=== PATIENT | male | born 1965 | race Caucasian/White ===

== ENCOUNTER 2022-08-04 13:17 | Outpatient (REF) | payer BC, SELFPAY ==
[2022-08-10 16:59] LABS: Stone Source KIDNEY STONE
== END 2022-08-04 13:18 | disposition home or self-care (01) ==
LOC: HO.LAB 13:17
PROVIDERS: PCP Internal Medicine; Visit Provider Urology
DX: N20.0 Calculus of kidney (principal)
CPT/HCPCS: 51798; 82365; 88300

== ENCOUNTER 2022-09-20 12:50 | Outpatient (REF) | payer BC, SELFPAY ==
--- NOTE | ~2022-09-20 | US_ITS ---
EXAMINATION: US RETROPERITONEAL LIMITED (RENAL ONLY) CLINICAL INFORMATION: Calculus of kidney. COMPARISON: None TECHNIQUE: Real-time imaging of the kidneys. FINDINGS: RIGHT KIDNEY: 11.3 x 5.2 x 5.3 cm (SAG x AP x TRV). The kidney is normal in size, contour, and echogenicity. Renal cortical thickness is normal. No focal parenchymal lesions or hydronephrosis. Nonobstructing lower pole 7 mm stone. LEFT KIDNEY: 11.9 x 5.3 x 6.1 cm (SAG x AP x TRV). The kidney is normal in size, contour, and echogenicity. Renal cortical thickness is normal. No calculi or focal parenchymal lesions. No hydronephrosis. US/US renal BI IMPRESSION: Nonobstructing right renal nephrolithiasis.
== END 2022-09-20 12:51 | disposition home or self-care (01) ==
LOC: HO.US 12:50
PROVIDERS: PCP Internal Medicine; Visit Provider Urology
DX: N20.0 Calculus of kidney (principal)
CPT/HCPCS: 76775

== ENCOUNTER → 2022-10-06 14:05 | Outpatient (BNVA) | payer BC, SELFPAY | PROVIDERS: PCP Internal Medicine; Visit Provider Urology | DX: Z13.89 Encounter for screening for other disorder (principal) ==

== ENCOUNTER 2023-04-04 11:18 | Outpatient (REF) | payer BC, SELFPAY ==
--- NOTE | ~2023-04-04 | US_ITS ---
EXAMINATION: US RETROPERITONEAL LIMITED (RENAL ONLY) CLINICAL INFORMATION: Calculus of kidney. COMPARISON: Ultrasound retroperitoneal limited (renal only) 09/20/2022. TECHNIQUE: Real-time imaging of the kidneys. FINDINGS: RIGHT KIDNEY: 10.1 x 6.3 x 5.1 cm (SAG x AP x TRV). The kidney is normal in size, contour, and echogenicity. Renal cortical thickness is normal. No renal calculi or hydronephrosis. Subcentimeter benign-appearing renal cyst, no follow-up imaging recommended. LEFT KIDNEY: 11.3 x 6.0 x 4.6 cm (SAG x AP x TRV). The kidney is normal in size, contour, and echogenicity. Renal cortical thickness is normal. No calculi or focal parenchymal lesions. No hydronephrosis. US/US renal BI IMPRESSION: No hydronephrosis or nephrolithiasis identified.
== END 2023-04-04 11:19 | disposition home or self-care (01) ==
LOC: HO.US 11:18
PROVIDERS: PCP Internal Medicine; Visit Provider Urology
DX: N20.0 Calculus of kidney (principal)
CPT/HCPCS: 76775

== ENCOUNTER 2023-04-12 15:23 | Outpatient (AMB) | payer BC, SELFPAY ==
--- NOTE | 2023-04-12 15:33 | A.OFFVIS_ITS ---
Intake Intake Visit Reasons: 6m/US/litholink(set) Intake Note: Patient is present for Follow Up Urology Med: None Antibiotic Allergy: None Blood Thinner: Aspirin [facility]acy: [facility] Allergies GRASS Allergy (Mild, Uncoded 10/06/22 14:05) Unknown HPI HPI Comments History of Present Illness Details Nitin is a very pleasant male. He is a patient of Dr. London. He is seen for the following urologic conditions - lower urinary tract symptoms - nephrolithiasis Imaging no evidence of stones Urination stabilized Six month follow-up for stone Nephrolithiasis Longstanding Has made stones since his early 30s Stone composition - calcium oxalate monohydrate 80% Imaging - 08/16 renal ultrasound 7 mm right lower pole - 04/16 renal ultrasounds no stones 24 hour urine - 08/16 borderline volume, low magnesium, normal citrate, normal calcium, normal oxalate, acidic urine Therapeutic plan - potassium citrate 20 mEq b.i.d. - magnesium citrate - interval imaging Lower urinary tract symptoms Was noticeable during hospital admission for cardiac related issues Has been started on a number of cardiac medications - metformin, carvedilol, spironolactone, Xarelto At this point will hold off on medications to cardiac medications stabilized [facility] Medical History GERD (gastroesophageal reflux disease) Heart attack History of kidney stones HTN (hypertension) Hyperlipidemia Surgical History H/O heart artery stent History of hernia repair History of lithotripsy Review of Systems Const Denies chills and Denies fever(s) Card Reports no additional complaints and Denies syncope Resp Denies cough GI Denies abdominal pain and Denies heartburn Reports as per HPI and Denies change in libido Neuro Denies syncope Psych Denies change in libido Endo Denies change in libido Physical Exam Const General: cooperative, healthy appearing, comfortable and no acute distress Orientation/consciousness: patient oriented x3 HEENT Face and sinus: Yes normal facial exam Mouth: moist mucous membranes Neck Neck: Yes normal visual inspection, Yes full ROM and Yes trachea midline Chest Chest palpation & inspection: normal inspection of the chest Resp Effort & Inspection: normal respiratory effort, able to speak in complete sentences and no respiratory distress GI Inspection: Yes normal to inspection Back/Spine/Pelvis Cervical Spine: normal cervical lordosis Thoracic/Lumbar Spine: thoracic and lumbar spine normal to inspection Skin General skin exam: no rashes or lesions noted Neuro General: patient oriented x3, gait normal, tone normal and moves all extremities Extrem General: Yes normal to inspection and Yes capillary refill normal Assessment & Plan Assessment & Plan (1) Nephrolithiasis: Code(s): N20.0 - Calculus of kidney (2) Lower urinary tract symptoms due to benign prostatic hyperplasia: Code(s): N40.1 - Benign prostatic hyperplasia with lower urinary tract symptoms Plan 6m follow-up renal ultrasound Orders: Orders US renal BI 6 Months N20.0 - Calculus of kidney Patient Instructions: Imaging studies, laboratory and physical exam results were discussed and revie wed in detail. No major barriers to patient understanding were identified. An opportunity to ask questions regarding the treatment plan was provided. All questions were answered. The patient expressed understanding and agreement with the above treatment plan. The patient is aware they should contact our office by phone for worsening of their current condition or the appearance of new urologic symptoms. Compliance is encouraged with any medications and followup testing that is ordered. It is a privilege to participate in the urologic care of your patient. If you have any questions or concerns regarding treatment for the above conditions, or other urologic issues, please do not hesitate to contact me. The office telephone contact is [phone]. This note is constructed using voice recognition software. While every effort has been made to ensure accuracy bail attacher errors may have been included. Yours sincerely, Dr Yeison Serra MD, [facility] - Urology Providers of Expert, Compassionate Care for the Genitourinary System Coding Level of Care Code Est Pt Level 3 (09022) Diagnoses Nephrolithiasis N20.0 Lower urinary tract symptoms due to benign prostatic hyperplasia N40.1
== END 2023-04-12 16:01 | disposition home or self-care (01) ==
PROVIDERS: PCP Internal Medicine; Visit Provider Urology
DX: N20.0 Calculus of kidney (principal); N40.1 Benign prostatic hyperplasia with lower urinary tract symptoms
CPT/HCPCS: 99213

== ENCOUNTER → 2023-04-12 15:23 | Outpatient (BNVA) | payer BC, SELFPAY | PROVIDERS: Visit Provider Urology ==

== ENCOUNTER 2023-09-28 13:13 | Outpatient (REF) | payer BC, SELFPAY ==
--- NOTE | ~2023-09-28 | US_ITS ---
EXAMINATION: US RETROPERITONEAL LIMITED (RENAL ONLY) CLINICAL INFORMATION: Calculus of kidney. COMPARISON: Renal ultrasound 04/04/2023 and 09/20/2022. TECHNIQUE: Real-time imaging of the kidneys. FINDINGS: RIGHT KIDNEY: 10.9 x 6.0 x 5.7 cm (SAG x AP x TRV). The kidney is normal in size and echogenicity. Renal cortical thickness is normal. There is an area of cortical bright punctate echogenicity consistent with calcification/stone. This was not noted on the most recent prior study. It should be noted that on the 09/20/2022 study, a 7 mm stone was noted in the lower pole of the right kidney which is not seen on the current exam. No renal calculi or hydronephrosis. A benign 0.8 cm mid renal lateral Bosniak class I renal cyst is noted which requires no additional imaging or follow up. No solid renal masses are seen. LEFT KIDNEY: 11.5 x 5.7 x 4.0 cm (SAG x AP x TRV). The kidney is normal in size and echogenicity. Renal cortical thickness is normal. Three echogenic foci seen at the lower pole of the left kidney, the largest measuring 3 mm consistent with nonobstructing calculi. These were not noted previously. No focal parenchymal lesions or hydronephrosis. ADDITIONAL FINDINGS: There is a 1.3 cm cyst in the spleen with a single thin septation. US/US renal BI IMPRESSION: 1. Bilateral nonobstructing renal calculi, not noted on the most recent prior study. 2. Incidental note made of a 1.3 cm splenic cyst with a single thin septation.
== END 2023-09-28 13:14 | disposition home or self-care (01) ==
LOC: HO.US 13:13
PROVIDERS: PCP Internal Medicine; Visit Provider Urology
DX: N20.0 Calculus of kidney (principal)
CPT/HCPCS: 76775

== ENCOUNTER 2023-10-19 14:52 | Outpatient (AMB) | payer BC, SELFPAY ==
--- NOTE | 2023-10-19 14:56 | A.OFFVIS_ITS ---
Intake Visit Reasons: 6M US(set) Intake Note: Patient presents today for a follow up on [facility] [place] Meds- None Allergies to Antibiotic- No Known Allergies Blood Thinner- Xarelto, Aspirin Post Void Residual: 46ml Patient Symptoms: None Digital Marketing Intern Required: No Accompanied by: Self / Same As Patient Allergies GRASS Allergy (Mild, Uncoded 10/19/23 15:00) Unknown Medication List - Last Reconciled 10/19/23 by Yeison Serra MD alcohol swabs (Alcohol Prep Pads) 0 pad topical BID aspirin 81 mg PO DAILY atorvastatin 80 mg PO DAILY blood sugar diagnostic (Accu-Chek Guide test strips) As directed carvedilol 25 mg PO BID empagliflozin (Jardiance) 10 mg PO DAILY eplerenone 25 mg PO DAILY fluoride (sodium) 1.1% PO BID lancets (Accu-Chek Softclix Lancets) As directed metformin 0 mg PO metformin ER 500 mg PO BID omeprazole 40 mg PO DAILY rivaroxaban (Xarelto) 20 mg PO DAILY sacubitril-valsartan 24-26 mg (Entresto) 1 tab PO BID HPI Comments Details: Nitin is a very pleasant male. He is a patient of Dr. London. He is seen for the following urologic conditions - lower urinary tract symptoms - nephrolithiasis in the setting of diabetes PVR 50 cc Small stones on imaging Recommend continuing with potassium citrate and magnesium citrate Repeat 24 hour urine in 6 months Nephrolithiasis Longstanding Has made stones since his early 30s Stone composition - calcium oxalate monohydrate 80% Imaging - 08/16 renal ultrasound 7 mm right lower pole - 04/16 renal ultrasounds no stones - 10/15 renal ultrasounds small right lower pole stone, small left stones 24 hour urine - 08/16 borderline volume, low magnesium, normal citrate, normal calcium, normal oxalate, acidic urine Therapeutic plan - potassium citrate 20 mEq b.i.d. - magnesium citrate - interval imaging Lower urinary tract symptoms Was noticeable during hospital admission for cardiac related issues Has been started on a number of cardiac medications - metformin, carvedilol, spironolactone, Xarelto At this point will hold off on medications to cardiac medications stabilized [facility] Medical History Heart attack GERD (gastroesophageal reflux disease) History of kidney stones HTN (hypertension) Hyperlipidemia Surgical History H/O heart artery stent History of lithotripsy History of hernia repair Review of Systems Const Denies chills and Denies fever(s) Card Reports no additional complaints and Denies syncope Resp Denies cough GI Denies abdominal pain and Denies heartburn Reports as per HPI and Denies change in libido Neuro Denies syncope Psych Denies change in libido Endo Denies change in libido Physical Exam Const General: cooperative, healthy appearing, comfortable and no acute distress Orientation/consciousness: patient oriented x3 HEENT Face and sinus: Yes normal facial exam Mouth: moist mucous membranes Neck Neck: Yes normal visual inspection, Yes full ROM and Yes trachea midline Chest Chest palpation & inspection: normal inspection of the chest Resp Effort & Inspection: normal respiratory effort, able to speak in complete sentences and no respiratory distress GI Inspection: Yes normal to inspection Back/Spine/Pelvis Cervical Spine: normal cervical lordosis Thoracic/Lumbar Spine: thoracic and lumbar spine normal to inspection Skin General skin exam: no rashes or lesions noted Neuro General: patient oriented x3, gait normal, tone normal and moves all extremities Extrem General: Yes normal to inspection and Yes capillary refill normal Office Procedures Post Void Residual Post Residual Void Post Void Residual (PVR): [id number] Void Residual by ultrasound Assessment & Plan Assessment & Plan (1) Nephrolithiasis: Code(s): N20.0 - Calculus of kidney Category: Medical (2) Lower urinary tract symptoms due to benign prostatic hyperplasia: Code(s): N40.1 - Benign prostatic hyperplasia with lower urinary tract symptoms Category: Medical Plan Six-month follow-up 24 hour urine Orders: Orders AMB Post Void Residual by ultrasound 10/19/23 R33.9 - Retention of urine, unspecified US renal BI 6 Months N20.0 - Calculus of kidney Patient Instructions: Imaging studies, laboratory and physical exam results were discussed and reviewed in detail. No major barriers to patient understanding were identified. An opportunity to ask questions regarding the treatment plan was provided. All questions were answered. The patient expressed understanding and agreement with the above treatment plan. The patient is aware they should contact our office by phone for worsening of their current condition or the appearance of new urologic symptoms. Compliance is encouraged with any medications and followup testing that is ordered. It is a privilege to participate in the urologic care of your patient. If you have any questions or concerns regarding treatment for the above conditions, or other urologic issues, please do not hesitate to contact me. The office telephone contact is [phone]. This note is constructed using voice recognition software. While every effort has been made to ensure accuracy blood bank business manager errors may have been included. Yours sincerely, Dr Yeison Serra MD, [facility] - Urology Providers of Expert, Compassionate Care for the Genitourinary System
== END 2023-10-19 15:36 | disposition home or self-care (01) ==
PROVIDERS: PCP Internal Medicine; Visit Provider Urology
DX: N20.0 Calculus of kidney (principal); N40.1 Benign prostatic hyperplasia with lower urinary tract symptoms
CPT/HCPCS: 99213

== ENCOUNTER → 2023-10-19 14:52 | Outpatient (BNVA) | payer BC, SELFPAY | PROVIDERS: PCP Internal Medicine; Visit Provider Urology | DX: N40.1 Benign prostatic hyperplasia with lower urinary tract symptoms (principal); R33.8 Other retention of urine; N20.0 Calculus of kidney | CPT/HCPCS: 51798 ==

== ENCOUNTER 2024-04-02 13:01 | Outpatient (REF) | payer BC, SELFPAY ==
--- NOTE | ~2024-04-02 | US_ITS ---
EXAMINATION: US RETROPERITONEAL LIMITED (RENAL ONLY) CLINICAL INFORMATION: Calculus of kidney. COMPARISON: Renal ultrasound 09/28/2023 and 04/04/2023. TECHNIQUE: Real-time imaging of the kidneys. FINDINGS: RIGHT KIDNEY: 10.9 x 6.1 x 5.2 cm (SAG x AP x TRV). The kidney is normal in size, contour, and echogenicity. Renal cortical thickness is normal. There is a cortical 3 mm echogenic focus seen in the mid kidney laterally consistent with calculus additional. No renal calculi or hydronephrosis. A benign [id number] renal 0.9 cm Bosniak class I renal cyst is noted which requires no additional imaging or follow up. No solid renal masses are seen. LEFT KIDNEY: 11.9 x 5.6 x 5.1 cm (SAG x AP x TRV). The kidney is normal in size, contour, and echogenicity. Renal cortical thickness is normal. Two echogenic foci noted in the kidney, one in the upper pole measuring 4 mm with the other in the lower pole measuring 3 mm consistent with nonobstructing calculi. No focal parenchymal lesions or hydronephrosis. ADDITIONAL FINDINGS: Splenic cysts are again noted with the largest measuring 1.5 cm along with a brightly echogenic 7 mm lesion, possibly a splenic hemangioma. US/US renal BI IMPRESSION: Bilateral nonobstructing renal calculi. Electronically signed by: Leoncio Briseno MD 04/11/2024 01:20 PM EDT
== END 2024-04-02 13:02 | disposition home or self-care (01) ==
LOC: HO.US 13:01
PROVIDERS: PCP Internal Medicine; Visit Provider Urology
DX: N20.0 Calculus of kidney (principal)
CPT/HCPCS: 76775

== ENCOUNTER 2024-04-18 14:45 | Outpatient (AMB) | payer BC, SELFPAY ==
--- NOTE | 2024-04-18 14:49 | MHC.OFFVIS ---
Intake Visit Reasons: 6/US(set) Intake Note: Patient is Present for Follow Up Ultrasound Urology Medication: None Antibiotic Allergies: None Blood Thinners: Aspirin, Xarelto Leather Novelty Parts Cutter Required: No Accompanied by: Self / Same As Patient Allergies GRASS Allergy (Mild, Uncoded 04/18/24 14:51) Unknown HPI Comments Details: Nitin is a very pleasant male. He is a patient of Dr. London. 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 He was unable to tell me why. Dr Machelle Dunne - attempted to contact Nephrolithiasis Longstanding Has made stones since his early 30s Stone composition - calcium oxalate monohydrate 80% Imaging - 08/16 renal ultrasound 7 mm right lower pole - 04/16 renal ultrasounds no stones - 10/15 renal ultrasounds small right lower pole stone, small left stones - 04/17 renal ultrasound small left nephrogenic focus 4 mm 24 hour urine - 08/16 borderline volume, low magnesium, normal citrate, normal calcium, normal oxalate, acidic urine Therapeutic plan - potassium citrate 20 mEq b.i.d. - magnesium citrate - interval imaging Lower urinary tract symptoms Was noticeable during hospital admission for cardiac related issues Has been started on a number of cardiac medications - metformin, carvedilol, spironolactone, Xarelto At this point will hold off on medications to cardiac medications stabilized [facility] Medical History Heart attack GERD (gastroesophageal reflux disease) History of kidney stones HTN (hypertension) Hyperlipidemia Surgical History H/O heart artery stent History of lithotripsy History of hernia repair Review of Systems Const Denies chills and Denies fever(s) Card Reports no additional complaints and Denies syncope Resp Denies cough GI Denies abdominal pain and Denies heartburn Reports as per HPI and Denies change in libido Neuro Denies syncope Psych Denies change in libido Endo Denies change in libido Physical Exam Const General: cooperative, healthy appearing, comfortable and no acute distress Orientation/consciousness: patient oriented x3 HEENT Face and sinus: Yes normal facial exam Mouth: moist mucous membranes Neck Neck: Yes normal visual inspection, Yes full ROM and Yes trachea midline Chest Chest palpation & inspection: normal inspection of the chest Resp Effort & Inspection: normal respiratory effort, able to speak in complete sentences and no respiratory distress GI Inspection: Yes normal to inspection Back/Spine/Pelvis Cervical Spine: normal cervical lordosis Thoracic/Lumbar Spine: thoracic and lumbar spine normal to inspection Skin General skin exam: no rashes or lesions noted Neuro General: patient oriented x3, gait normal, tone normal and moves all extremities Extrem General: Yes normal to inspection and Yes capillary refill normal Assessment & Plan Assessment & Plan (1) Nephrolithiasis: Code(s): N20.0 - Calculus of kidney Category: Medical (2) Lower urinary tract symptoms due to benign prostatic hyperplasia: Code(s): N40.1 - Benign prostatic hyperplasia with lower urinary tract symptoms Category: Medical Plan Interval surveillance Orders: Orders US renal BI 6 Months N20.0 - Calculus of kidney Patient Instructions: Imaging studies, laboratory and physical exam results were discussed and reviewed in detail. No major barriers to patient understanding were identified. An opportunity to ask questions regarding the treatment plan was provided. All questions were answered. The patient expressed understanding and agreement with the above treatment plan. The patient is aware they should contact our office by phone for worsening of their current condition or the appearance of new urologic symptoms. Compliance is encouraged with any medications and followup testing that is ordered. It is a privilege to participate in the urologic care of your patient. If you have any questions or concerns regarding treatment for the above conditions, or other urologic issues, please do not hesitate to contact me. The office telephone contact is [phone]. This note is constructed using voice recognition software. While every effort has been made to ensure accuracy radarman errors may have been included. Yours sincerely, Dr Yeison Serra MD, [facility] - Urology Providers of Expert, Compassionate Care for the Genitourinary System Coding Level of Care Code Est Pt Level 3 (31577) Diagnoses Nephrolithiasis N20.0 Lower urinary tract symptoms due to benign prostatic hyperplasia N40.1
== END 2024-04-18 15:28 | disposition home or self-care (01) ==
PROVIDERS: PCP Internal Medicine; Visit Provider Urology
DX: N20.0 Calculus of kidney (principal); N40.1 Benign prostatic hyperplasia with lower urinary tract symptoms
CPT/HCPCS: 99213

== ENCOUNTER → 2024-04-18 14:45 | Outpatient (BNVA) | payer BC, SELFPAY | PROVIDERS: PCP Internal Medicine; Visit Provider Urology ==

== ENCOUNTER 2024-10-10 13:34 | Outpatient (REF) | payer BC, SELFPAY ==
--- NOTE | ~2024-10-10 | US_ITS ---
EXAMINATION: US RETROPERITONEAL LIMITED (RENAL ONLY) CLINICAL INFORMATION: Calculus of kidney. COMPARISON: Ultrasound 04/11/2024 TECHNIQUE: Routine grayscale imaging of kidneys is performed. FINDINGS: RIGHT KIDNEY: 0.5 x 0.4 x 0.4 cm (SAG x AP x TRV). The kidney is normal in size, contour, and echogenicity. Renal cortical thickness is normal. There is anechoic cyst mid pole measuring 0.5 x 0.4 x 0.4 cm. No additional seen seen. There are small echogenic foci in midpole.. LEFT KIDNEY: 12.1 x 4.9 x 4.2 cm (SAG x AP x TRV). The kidney is normal in size, contour, and echogenicity. Renal cortical thickness is normal. There are small echogenic stones visualized. An upper pole echogenic stone measures 0.2 x 0.2 x 0.2 cm, mid pole stone measures 0.2 x 0.3 x 0.3 cm. There is an echogenic focus in lower pole measuring 0.2 x 0.2 x 0.2 cm. Incidentally noted is a hypoechoic lesion in the spleen collections small hemangioma measuring 0.4 x 0.4 x 0.5 cm. A small anechoic cyst is visualized as well. US/US renal BI IMPRESSION: Bilateral small echogenic renal foci. Nonobstructive echogenic stone upper and mid pole left kidney. Simple cyst right kidney. Small hemangioma and cysts in spleen, unchanged to previous ultrasound 04/11/2024. Electronically signed by: Vicente Perry MD 10/10/2024 03:48 PM EDT
== END 2024-10-10 13:35 | disposition home or self-care (01) ==
LOC: HO.US 13:34
PROVIDERS: PCP Internal Medicine; Visit Provider Urology
DX: N20.0 Calculus of kidney (principal)
CPT/HCPCS: 76775

== ENCOUNTER → 2024-10-10 13:35 | Outpatient (BNV) | payer BC, SELFPAY | PROVIDERS: PCP Internal Medicine; Visit Provider Radiology Diagnostic Radiology | DX: N20.0 Calculus of kidney (principal) | CPT/HCPCS: 76775 ==

== ENCOUNTER 2024-11-14 14:47 | Outpatient (AMB) | payer BC, SELFPAY ==
--- NOTE | 2024-11-14 14:54 | A.OFFVIS_ITS ---
Intake Visit Reasons: 6m/US Intake Note: Patient is present for 6M/US Urology Medication:NONE Antibiotic Allergy:NONE Blood Thinner:RIVAROXABAN,ASPIRIN Sleever Required: No Allergies GRASS Allergy (Mild, Uncoded 11/14/24 14:55) Unknown HPI Comments Details: Nitin is a very pleasant male. He is a patient of Dr. London. He is seen for the following urologic conditions - lower urinary tract symptoms - nephrolithiasis in the setting of diabetes Interval ultrasound shows development of stones on left side Again recommended to take potassium citrate He says he asked his technical writer and editor - I reminded him the technical writer and editor does not know how to treat kidney stones particularly in the setting of diabetes Plan for interval ultrasound and Julian Has balanitis and clotrimazole prescribed Ward Secretary who said he is unable to take potassium and magnesium citrate. He was unable to tell me why. Dr Machelle Dunne - attempted to contact Nephrolithiasis in setting of diabetes Longstanding Has made stones since his early 30s Stone composition - calcium oxalate monohydrate 80% Imaging - 08/16 renal ultrasound 7 mm right lower pole - 04/16 renal ultrasounds no stones - 10/15 renal ultrasounds small right lower pole stone, small left stones - 04/17 renal ultrasound small left nephrogenic focus 4 mm - 10/16 renal ultrasound small bilateral echogenic foci 24 hour urine - 08/16 borderline volume, low magnesium, normal citrate, normal calcium, normal oxalate, acidic urine Therapeutic plan - potassium citrate 20 mEq b.i.d. - magnesium citrate - interval imaging Lower urinary tract symptoms Was noticeable during hospital admission for cardiac related issues Has been started on a number of cardiac medications - metformin, carvedilol, spironolactone, Xarelto At this point will hold off on medications to cardiac medications stabilized [facility] Medical History Heart attack GERD (gastroesophageal reflux disease) History of kidney stones HTN (hypertension) Hyperlipidemia Surgical History H/O heart artery stent History of lithotripsy History of hernia repair Review of Systems Const Denies chills and Denies fever(s) Card Reports no additional complaints and Denies syncope Resp Denies cough GI Denies abdominal pain and Denies heartburn Reports as per HPI and Denies change in libido Neuro Denies syncope Psych Denies change in libido Endo Denies change in libido Physical Exam Const General: cooperative, healthy appearing, comfortable and no acute distress Orientation/consciousness: patient oriented x3 HEENT Face and sinus: Yes normal facial exam Mouth: moist mucous membranes Neck Neck: Yes normal visual inspection, Yes full ROM and Yes trachea midline Chest Chest palpation & inspection: normal inspection of the chest Resp Effort & Inspection: normal respiratory effort, able to speak in complete sentences and no respiratory distress GI Inspection: Yes normal to inspection Back/Spine/Pelvis Cervical Spine: normal cervical lordosis Thoracic/Lumbar Spine: thoracic and lumbar spine normal to inspection Skin General skin exam: no rashes or lesions noted Neuro General: patient oriented x3, gait normal, tone normal and moves all extremities Extrem General: Yes normal to inspection and Yes capillary refill normal Assessment & Plan Assessment & Plan (1) Nephrolithiasis: Code(s): N20.0 - Calculus of kidney Category: Medical (2) Lower urinary tract symptoms due to benign prostatic hyperplasia: Code(s): N40.1 - Benign prostatic hyperplasia with lower urinary tract symptoms Category: Medical Plan Six-month follow-up imaging Orders: Orders URORISK Today N20.0 - Calculus of kidney US renal BI 6 Months N20.0 - Calculus of kidney Medications: New clotrimazole-betamethasone 1-0.05 % Apply thin coat 2 times per day 1 appl topical BID 4 weeks 45 grams 0RF N40.1 - Benign prostatic hyperplasia with lower urinary tract symptoms, N48.1 - Balanitis Patient Instructions: This note is constructed using voice recognition software. While every effort has been made to ensure accuracy driver trainer errors may have been included. Imaging studies, laboratory and physical exam results were discussed and r eviewed in detail. No major barriers to patient understanding were identified. An opportunity to ask questions regarding the treatment plan was provided. All questions were answered. The patient expressed understanding and agreement with the above treatment plan. The patient is aware they should contact our office by phone for worsening of their current condition or the appearance of new urologic symptoms. Compliance is encouraged with any medications and followup testing that is ordered. It is a privilege to participate in the urologic care of your patient. If you have any questions or concerns regarding treatment for the above conditions, or other urologic issues, please do not hesitate to contact me. The office telephone contact is [phone]. Sincerely, Dr Yeison Serra MD, [facility] - Urology Compassionate Specialist Care for the Genitourinary System Coding Level of Care Code Est Pt Level 4 (55477) Diagnoses Nephrolithiasis N20.0 Lower urinary tract symptoms due to benign prostatic hyperplasia N40.1
== END 2024-11-14 15:11 | disposition home or self-care (01) ==
LOC: HO.HUSH 14:47
PROVIDERS: PCP Internal Medicine; Visit Provider Urology
DX: N20.0 Calculus of kidney (principal); N40.1 Benign prostatic hyperplasia with lower urinary tract symptoms
CPT/HCPCS: 99214

== ENCOUNTER → 2024-11-14 14:47 | Outpatient (BNVA) | payer BC, SELFPAY | PROVIDERS: PCP Internal Medicine; Visit Provider Urology | DX: Z13.89 Encounter for screening for other disorder (principal) ==

== ENCOUNTER 2025-05-08 13:59 | Outpatient (REF) | payer BC, SELFPAY ==
--- NOTE | ~2025-05-08 | US_ITS ---
EXAMINATION: US RETROPERITONEAL LIMITED (RENAL ONLY) CLINICAL INFORMATION: Renal stones. COMPARISON: Previous renal ultrasounds most recent September 2024 TECHNIQUE: Real-time imaging of the kidneys. FINDINGS: RIGHT KIDNEY: 11 x 6 x 5 cm (SAG x AP x TRV). The kidney is normal in size, contour, and echogenicity. Renal cortical thickness is normal. Small cyst in the mid pole measuring 8 x 6 x 9 mm. Small echogenic density in the midpole questionable for small stone versus vascular reflector. No hydronephrosis. LEFT KIDNEY: 12 x 6.2 x 4.6 cm (SAG x AP x TRV). The kidney is normal in size, contour, and echogenicity. Renal cortical thickness is normal. Several small echogenic densities questionable for small stones, largest measuring 3 mm in the lower pole. No hydronephrosis. Gallstones. Multiple splenic cysts largest measuring 1.3 cm. 8 x 5 x 6 mm echogenic lesion in the spleen probably representing a benign hemangioma. The findings are similar to prior renal ultrasounds. US/US renal BI IMPRESSION: Question small bilateral renal stones, left greater than right. No hydronephrosis. Incidental gallstones, and small splenic cysts and subcentimeter echogenic splenic lesion similar to prior exam probably representing a hemangioma. Electronically signed by: Joanne Finney MD 05/08/2025 03:03 PM EDT
--- OUTSIDE RECORDS SUMMARY | 2025-05-08 17:44 | XMS_ITS | Clinical Summary ---
Author Organization [facility] [address] [facility] Address [address] [place] [address] Phone Care Team Providers Care Surgical Garment Assembly Supervisor Name Role Phone Mj London MD Primary Care Provider [phone] Encounters Date Type Department Care Team Description 02/27/2025 Telephone Gastroenterology - [address] [phone] Lopez Dickey MD from Last 3 Months Social History Tobacco Use Types Packs/Day Years Used Date Smoking Tobacco: Never Assessed Sex and Gender Information Value Date Recorded Sex Assigned at Not on file Legal Sex Male 8:17 AM EDT Gender Identity Not on file Sexual Orientation Not on file Plan of Treatment Upcoming Encounters Date Type Department Care Team ([facility] st Contact Info) Description 06/19/2025 2:00 PM EST Consult Gastroenterology - [address] [place] [address] [phone] Lopez Dickey MD [address] [place] [phone] Health Maintenance Due Date Last Done Comments Colorectal Cancer Screening: Colonoscopy 1963 DTaP,Tdap,and Td Vaccines (1 - Tdap) 1982 Pneumococcal Vaccine: 50+ Ye ars (1 of 1 - PCV) 2013 Zoster Vaccines (1 of 2) 2013 Depression Screening 07/25/2024 Cholesterol Screening (Lipid Panel) 02/27/2025 HIV Screening 02/27/2025 Hepatitis C Screening 02/27/2025 Social Influencers of Health Screening 02/27/2025 COVID-19 Vaccine (2023-2 5 season) 2025 Influenza Vaccine (#1) 2025 RSV Immunization Adult Patie nts (1 - 1-dose 75+ series) 2038 HIB Vaccines Aged Out No longer eligi ble based on patient's age to complete this topic HPV Vaccines Aged Out No longer eligi ble based on patient's age to complete this topic Hepatitis A Vaccines Aged Out No long er eligible based on patient's age to complete this topic Hepatitis B Vaccines Aged Out No long er eligible based on patient's age to complete this topic IPV Vaccines Aged Out No longer eligi ble based on patient's age to complete this topic MMR Vaccines Aged Out No longer eligi ble based on patient's age to complete this topic Meningococcal ACWY Vaccine Aged Out N o longer eligible based on patient's age to complete this topic Meningococcal B Vaccine Aged Out No l onger eligible based on patient's age to complete this topic RSV Immunization Patients Un kathy 20 months Aged Out No longer eligible b ased on patient's age to complete this topic Varicella Vaccines Aged Out No longer eligible based on patient's age to complete this topic Insurance [facility] Care Teams Surgical Garment Assembly Supervisor Relationship Specialty Start Date End Date Mj London MD [address] [place] [address] PCP - General Internal Medicine 02/27/25
== END 2025-05-08 14:00 | disposition home or self-care (01) ==
LOC: HO.US 13:59
PROVIDERS: PCP Internal Medicine; Visit Provider Urology
DX: N20.0 Calculus of kidney (principal)
CPT/HCPCS: 76775

== ENCOUNTER → 2025-05-08 14:01 | Outpatient (BNV) | payer BC, SELFPAY | PROVIDERS: PCP Internal Medicine; Visit Provider Radiology Diagnostic Radiology | DX: N20.0 Calculus of kidney (principal) | CPT/HCPCS: 76775 ==